=== PATIENT | female | born 1930 | race Caucasian/White ===

== ENCOUNTER 2018-05-25 06:24 | Inpatient (IN) | payer OTHER ==
[~2018-05-25] VITALS: Ht 160 cm; Wt 79.6 kg
[2018-05-25 06:29] VITALS: BP 179/54
[2018-05-25] MEDS ORDERED: AMLODIPINE BESY10 MG PO (06:48)
[2018-05-25] MEDS ORDERED: LISINOPRIL40 MG PO (06:49)
[2018-05-25] MEDS ORDERED: HYDROCHLOROTH12.5 M1 PO (06:50)
[2018-05-25] MEDS ORDERED: ASPIRIN EC81 M1 PO (06:51)
[2018-05-25 06:53] LABS: ABSOLUTE NEUTROPHILS 3.4 thou/uL (1.4-8.2); BASOPHILS 1.2 % (0.0-2.0); EOSINOPHILS 2.8 % (0.0-3.0); HEMATOCRIT 36.3 % (37.0-47.0); HEMOGLOBIN 11.8 gm/dL (12.0-15.0); LYMPHOCYTES 42.9 % (24.0-44.0); MCH 25.9 pg (26.0-34.0); MCHC 32.5 g/dL (28.0-37.0); MCV 79.7 fL (80.0-100.0); MONOCYTES 7.2 % (1.0-8.0); PLATELET COUNT 245 thou/uL (150-400); POLYS 45.9 % (36.0-66.0); RBC 4.56 mil/uL (4.20-5.00); RDW 14.7 % (10.5-14.5); WBC 7.4 thou/uL (4.0-11.0)
[2018-05-25] MEDS ORDERED: OMEPRAZOLE 20 M20 M1 PO (06:54)
[2018-05-25 07:09] LABS: ALBUMIN 3.9 g/dL (3.4-5.0); ANION GAP 15 mmol/L (7-16); BUN 13 mg/dL (7-18); CALCIUM 9.4 mg/dL (8.5-10.1); CHLORIDE 97 mmol/L (98-107); CO2 24 mmol/L (21-32); CREATININE 0.9 mg/dL (0.6-1.0); GLUCOSE 179 mg/dL (74-106); SGOT 50 U/L (15-37); SGPT 52 U/L (30-65); SODIUM 136 mmol/L (136-145); TOTAL BILIRUBIN 0.6 mg/dL (<0.1-1.0); TROPONIN-I <0.06 ng/mL (<0.06)
[2018-05-25 07:12] LABS: POTASSIUM 2.6 mmol/L (3.5-5.1)
--- NOTE | 2018-05-25 07:41 | EKG ---
[place] [address] [facility] [employer] [place] [address] ELECTROCARDIOGRAM REPORT Name: TREYAMOL Room #: REG OUSMANE [place]#: [id number] ������������������ Admission: 05/25/18 ������������������ Attend Phys: Discharge: ������������������ Date of : [birth year] Report #: [id number] ����������������������������������������������������������������� [id number] THIS REPORT FOR: //name// [facility] ED Test Date: 2018-05-25 Test Time: 06:37:20 Pat Name: AMOL YANG Department: Room: Gender: F Reamer Hand: Phong VILLARREAL : 1930 Requested By: Kiera Du Order Number: [id number] MD: Chuck Hernandez Measurements Intervals [place] Rate: 100 P: 0 MT: 188 QRS: 29 QRSD: 155 T: -37 QT: 360 QTc: 465 Interpretive Statements Sinus tachycardia Atrial premature complex Right bundle branch block No previous ECG available for comparison Electronically Signed On 05-25-2018 7:41:06 CDT by Chuck Hernandez [email or web address] ��������������������������������������������� <ELECTRONICALLY SIGNED> ���������������������������������������� By: Chuck Hernandez MD, [facility] ��������������������������������������������� 05/25/18 0741 0637 0637 Chuck Hernandez MD, [facility] /EPI
[2018-05-25 09:02] VITALS: BP 156/68
[2018-05-25] MEDS ORDERED: BISOPROLOL-HCT1 EACH PO (09:09)
[2018-05-25 09:33] VITALS: BP 155/64
[2018-05-25 09:50] LABS: TSH 5.623 uIU/mL (0.358-3.740)
[2018-05-25 10:28] VITALS: BP 183/69
--- NOTE | 2018-05-25 10:34 | 2DMMODE ---
[facility] [address] [place] [address] 2 D/M-MODE ECHOCARDIOGRAM Name: AMOL YANG MARYANN Room #: 207-P ADM IN M.R.#: [id number] ������������� Admission: 05/25/18 ������������� Attend Phys: Steve Lott, Discharge: ��� ������������� ��� Date of : [birth year] Date of Service: 05/25/18 1034 �� Report #: [id number] �������� ��������������������������������������������[id number] THIS REPORT FOR: //name// APPROVED REPORT Study performed: 05/25/2018 09:44:35 EXAM: Comprehensive 2D, Doppler, and color-flow Echocardiogram Patient Location: Echo lab Room #: 207 Status: routine BSA: 1.83 HR: 97 bpm BP: 156/68 mmHg Rhythm: NSR Other Information Study Quality: Good Indications Systolic murmur, palpitations, HTN. 2D Dimensions RVDd: 32.33 mm IVSd: 10.88 (7-11mm) LVOT Diam: 20.78 (18-24mm) LVDd: 43.04 mm PWd: 9.83 (7-11mm) Ascending Ao: 28.81 (22-36mm) LVDs: 26.28 (25-40mm) Aortic Root: 30.39 mm Volumes Left Atrial Volume (Systole) Single Plane 4CH: 63.09 mL Single Plane 2CH: 73.43 mL LA ESV Index: 39.00 mL/m2 Aortic Valve AoV Peak Bret.: 2.95 m/s AO Peak Gr.: 34.85 mmHg LVOT Max P.32 mmHg AO Mean Gr.: 17.81 mmHg AO V2 Mean: 2.00 m/s LVOT Max V: 1.44 m/s AO V2 VTI: 52.53 cm JOSE RAFAEL Vmax: 1.66 cm2 Mitral Valve E/A Ratio: 0.7 [facility] [place] [place] [address] 2 D/M-MODE ECHOCARDIOGRAM Name: AMOL YANG MARYANN Room #: 207-P ADM IN M.R.#: [id number] ������������� Admission: 05/25/18 ������������� Attend Phys: Steve Lott, Discharge: ��� ������������� ��� Date of : [birth year] Date of Service: 05/25/18 1034 �� Report #: [id number] �������� ��������������������������������������������[id number] MV Decel. Time: 186.60 ms MV E Max Bret.: 0.69 m/s MV A Bret.: 0.99 m/s MV PHT: 54.11 ms IVRT: 65.74 ms Pulmonary Valve PV Peak Bret.: 1.49 m/s PV Peak Gr.: 8.82 mmHg Pulmonary Vein P Vein S: 0.54 m/s P Vein D: 0.46 m/s P Vein S/D Ratio: 1.17 Tricuspid Valve TR Peak Bret.: 3.06 m/s RAP Estimate: 5.00 mmHg TR Peak Gr.: 37.41 mmHg PA Pressure: 42.00 mmHg Left Ventricle The left ventricle is normal size. There is normal LV segmental wall motion. Mild basal septal hypertrophy is present. Left ventricular systolic function is normal. LVEF is 65%. Mild diastolic dysfunction is present (impaired relaxation pattern). Right Ventricle The right ventricle is normal size. The right ventricular systolic function is normal. Atria Left atrium is mild to moderately dilated. The right atrium size is normal. Aortic Valve Aortic valve is moderately calcified. Mild aortic regurgitation. There is mild valvular aortic stenosis. Calculated aortic valve area is 1.7 cm2 with maximum pressure gradient of 35 mmHg and mean pressure gradient of 18 mmHg. Mitral Valve Mitral valve leaflets are mildly thickened. Mild mitral regurgitation. No evidence of mitral valve stenosis. Tricuspid Valve The tricuspid valve is normal in structure. Mild to moderate tricuspid regurgitation. Estimated PAP is 40-45mmHg. [facility] [address] [place] [address] 2 D/M-MODE ECHOCARDIOGRAM Name: AMOL YANG MARYANN Room #: 207-P ADM IN M.R.#: [id number] ������������� Admission: 05/25/18 ������������� Attend Phys: Steve Lott, Discharge: ��� ������������� ��� Date of : [birth year] Date of Service: 05/25/18 1034 �� Report #: [id number] �������� ��������������������������������������������[id number] Pulmonic Valve The pulmonary valve is normal in structure. Trace pulmonic regurgitation. Great Vessels The aortic root is normal in size. The ascending aorta is normal in size. IVC is normal in size and collapses >50% with inspiration. Pericardium There is no pericardial effusion. <Conclusion> The left ventricle is normal size. LVEF is 65%. Left atrium is mild to moderately dilated. Aortic valve is moderately calcified. Mild aortic regurgitation. There is mild valvular aortic stenosis. Calculated aortic valve area is 1.7 cm2 with maximum pressure gradient of 35 mmHg and mean pressure gradient of 18 mmHg. Mitral valve leaflets are mildly thickened. Mild mitral regurgitation. The tricuspid valve is normal in structure. Mild to moderate tricuspid regurgitation. Estimated PAP is 40-45mmHg. The pulmonary valve is normal in structure. Trace pulmonic regurgitation. There is no pericardial effusion. ��������������������������������������������� <ELECTRONICALLY SIGNED> ���������������������������������������� By: Wes Marquis MD ��������������������������������������������� 05/25/18 1034 1034 1034 Wes Marquis MD /INF
[2018-05-25 14:41] VITALS: BP 166/66
--- NOTE | 2018-05-25 16:50 | NUR ---
PT TO THE UNIT FROM THE ER, - PRESENTED TO ER WITH CO'S OF OF INCREASED HEART RATE- STATED SHE HAD NOT BEEN FEELING WELL FOR THE LAST COUPLE OF WEEK - DECREASED ENERGY, THIS HAS OCCURRED AFTER HER BEST FRIEND A COUPLE OF WEEKS AGO. PT ORIENTED TO ROOM AND BED SPACE - K+ SUPPLEMENT GIVEN ORDERED. MEDS PER MAR - UP WITH STBY ASSIST AND USE OF CANE TO BATHROOM - HEART RATE DOES BECOME TACHY WITH EXERTION LOW 100'S. PT WITH ORDERES FOR HYDRALAZINE PRN WITH ELEVATED BP. ASSESSMENT CHARTED - NANNETTE DIET AND FLUIDS - NO CO'S AT PAIN OR NAUSEA. APPEARS TO BE COMFORTABLE AT THE PRESENT TIME.
[2018-05-25 19:52] VITALS: BP 149/65
[2018-05-26 00:20] VITALS: BP 152/80
[2018-05-26 01:06] LABS: GLYCOHEMOGLOBIN (HGB A1C) 5.5 % (4.8-5.6)
--- NOTE | 2018-05-26 03:43 | NUR ---
ASSUMED PT CARE AT 1900. VSS. PT A&0X4. MILD EDEMA NOTED IN HER BILATERAL LEGS. PT STILL GETS TACHYCARDIC WITH ACTIVITY; SHE GOES UP TO THE 120s. SHE MENTIONED A KNOT IN HER RIGHT HAND, SHE THINKS IT IS HER ARTHERITIS FLARING UP. OTHERWISE SHE IS STABLE NO COMPLAINTS OF PAIN OR RESPIRATORY DISTRESS. PT SLEPT WELL ALL NIGHT, WILL CONTINUE TO MONITOR PER POC.
[2018-05-26 04:14] LABS: CREATININE 0.9 mg/dL (0.6-1.0); MAGNESIUM 1.9 mg/dL (1.8-2.4)
[2018-05-26 04:29] LABS: ABSOLUTE NEUTROPHILS 2.8 thou/uL (1.4-8.2); BASOPHILS 0.6 % (0.0-2.0); EOSINOPHILS 3.4 % (0.0-3.0); HEMATOCRIT 32.9 % (37.0-47.0); HEMOGLOBIN 10.8 gm/dL (12.0-15.0); LYMPHOCYTES 40.7 % (24.0-44.0); MCH 26.2 pg (26.0-34.0); MCHC 32.8 g/dL (28.0-37.0); MONOCYTES 9.1 % (1.0-8.0); PLATELET COUNT 197 thou/uL (150-400); POLYS 46.2 % (36.0-66.0); RBC 4.12 mil/uL (4.20-5.00); RDW 14.9 % (10.5-14.5); WBC 6.1 thou/uL (4.0-11.0)
[2018-05-26 04:42] VITALS: BP 154/77
[2018-05-26 07:24] VITALS: BP 165/75
--- NOTE | 2018-05-26 10:20 | NUR ---
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 Her son Bong at bedside. She uses a cane for ambulation. All needs on one level with ramp to enter home from garage. She reports independent with bathing. Patient/son interested in Home Health at ar. PCP Dr Little. Offered options for HH they are interested in [facility]. Request [facility] review. Casemgt to give son resources for pvt dty. Plan initally to sons home upon dc then home with HH services. Patient signed outside DNR form.
[2018-05-26 12:01] VITALS: BP 139/56
[2018-05-26 16:15] VITALS: BP 151/71
--- NOTE | 2018-05-26 16:54 | NUR ---
Notified Rn of signed DNR form and placed on chart. Original and copies for son in room. [facility] accepting of patient on dc. verified sons adress were she will she originally stay and her home address.
--- NOTE | 2018-05-26 17:46 | NUR ---
AAOX4. PLEASANT AND COOPERATIVE. UP WITH MINIMAL ASSIST WITH CANE. GOOD APPETITE. FAMILY HERE MOST OF SHIFT. RIGHT AC SALINE LOCK.
[2018-05-26 19:42] VITALS: BP 135/54
[2018-05-27 05:00] VITALS: BP 128/65
[2018-05-27 07:45] VITALS: BP 142/75
[2018-05-27] MEDS ORDERED: VERAPAMIL ER180 M1 PO (08:54)
[2018-05-27 10:30] VITALS: BP 142/75
[2018-05-27 10:55] VITALS: BP 130/59
[2018-05-27] MEDS ORDERED: VERAPAMIL HCL180 M4 PO (13:28)
[2018-05-27 13:32] VITALS: BP 142/75
--- NOTE | 2018-05-27 14:25 | NUR ---
[facility] notified of dc today and hh orders. Son's address provided for start of service. No other cm interventions indicated. Dc home later today.
--- NOTE | 2018-05-27 15:46 | NUR ---
ASSESSMENT CHARTED - MEDS PER MAY - NO CO'S OF PAIN OR NAUSEA. PT WITH EPISODE OF DIARREHA THIS AM- GIVEN LOPREIMIDE WITH GOOD RELIEF. UP WITH STANDBY ASSIST IN ROOM. NANNETTE DIET AND FLUIDS. PATIENT HOME THIS AFTERNOON. INSTRUCTION RE HOME MEDS/ CARE AND FOLLOW UP GIVEN TO PATIENT AND DAUGHTER IN LAW. STATED UNDERSTANDING OF INSTRUCTION GIVEN. LEFT UNIT VIA WHEEL CHAIR - HOME VIA PVT VEHICLE ACCOMPANIED BY DAUGHTER IN LAW - NO CO'S AT TIME OF D/C. IV AND MONITOR REMOVED.
== END 2018-05-27 14:55 | disposition home health service (06) | DRG 641 ==
LOC: ER 06:24 → 2N 07:59 → EROBS 07:59 → 2N 09:39 → ENTRNSPT 05-27 14:45 → EDTRNSPTSTS 05-27 14:53 → 2N 05-27 14:55
PROVIDERS: Nurse Practitioner; Student in an Organized Health Care Education/Training Program; ADMIT Internal Medicine
DX: E87.6 Hypokalemia (principal); I10 Essential (primary) hypertension; M81.0 Age-related osteoporosis without current pathological fracture; K21.9 Gastro-esophageal reflux disease without esophagitis; R00.0 Tachycardia, unspecified; Z60.2 Problems related to living alone; I35.0 Nonrheumatic aortic (valve) stenosis; E53.8 Deficiency of other specified B group vitamins; M62.84 Sarcopenia; Z79.82 Long term (current) use of aspirin; Z79.899 Other long term (current) drug therapy; R00.2 Palpitations; I49.1 Atrial premature depolarization
CPT/HCPCS: 10081

== ENCOUNTER 2018-12-27 13:05 | Inpatient (IN) | payer OTHER ==
[~2018-12-27] VITALS: Ht 152.4 cm; Wt 81.2 kg
[~2018-12-27 13:05] MED LIST: AMLODIPINE BESY10 MG PO; ASPIRIN EC81 M1 PO; BISOPROLOL-HCT1 EACH PO; HYDROCHLOROTH12.5 M1 PO; LISINOPRIL40 MG PO; OMEPRAZOLE 20 M20 M1 PO; VERAPAMIL ER180 M1 PO; VERAPAMIL HCL180 M4 PO
[2018-12-27 13:14] VITALS: BP 155/86
[2018-12-27] MEDS ORDERED: OXYBUTYNIN 5 MG5 M2 PO (13:35)
[2018-12-27] MEDS ORDERED: KLOR-CON 1010 MEQ PO (13:36)
[2018-12-27 13:41] LABS: ABSOLUTE NEUTROPHILS 5.4 thou/uL (1.4-8.2); BASOPHILS 0.7 % (0.0-2.0); HEMATOCRIT 35.7 % (37.0-47.0); HEMOGLOBIN 11.5 gm/dL (12.0-15.0); LYMPHOCYTES 23.1 % (24.0-44.0); MCH 24.7 pg (26.0-34.0); MCHC 32.3 g/dL (28.0-37.0); MCV 76.3 fL (80.0-100.0); MONOCYTES 7.7 % (1.0-8.0); PLATELET COUNT 236 thou/uL (150-400); POLYS 67.5 % (36.0-66.0); RBC 4.68 mil/uL (4.20-5.00); RDW 14.8 % (10.5-14.5)
[2018-12-27 13:52] LABS: ANION GAP 14 mmol/L (7-16); BUN 11 mg/dL (7-18); CALCIUM 9.1 mg/dL (8.5-10.1); CHLORIDE 99 mmol/L (98-107); CO2 22 mmol/L (21-32); CREATININE 0.9 mg/dL (0.6-1.0); GLUCOSE 99 mg/dL (74-106); POTASSIUM 3.4 mmol/L (3.5-5.1); SODIUM 135 mmol/L (136-145)
[2018-12-27 14:01] LABS: ALBUMIN 3.9 g/dL (3.4-5.0); SGOT 40 U/L (15-37); SGPT 32 U/L (30-65); TOTAL BILIRUBIN 0.4 mg/dL (<0.1-1.0); TOTAL PROTEIN 7.5 g/dL (6.4-8.2); TROPONIN-I <0.06 ng/mL (<0.06)
[2018-12-27 14:54] LABS: URINE BILIRUBIN NEGATIVE (Negative); URINE BLOOD NEGATIVE (Negative); URINE CLARITY CLEAR; URINE COLOR YELLOW; URINE GLUCOSE-RANDOM* NEGATIVE (Negative); URINE KETONES NEGATIVE (Negative); URINE LEUKOCYTES-REFLEX NEGATIVE (Negative); URINE NITRITE-REFLEX NEGATIVE (Negative); URINE PROTEIN (DIPSTICK) NEGATIVE (Negative); URINE SPECIFIC GRAVITY <= 1.005 (1.005-1.035); URINE UROBILINOGEN 0.2 E.U./dl (0.2-1.0)
[2018-12-27 15:01] VITALS: BP 139/91
[2018-12-27 16:05] VITALS: BP 150/76
--- NOTE | 2018-12-27 16:42 | NUR ---
PT ARRIVED TO UNIT AT APPROX 1615. PT ALERT AND ORIENTED, DENIES CHEST PAIN, O2 SATS WNL ON ROOM AIR. VSS, UP SBA TOLERATING WELL. FAMILY AT BEDSIDE. ADMISSION COMPLETE. CONSENTS SIGNED. TELE PUT ON, ADMISSION STRIP PRINTED. REVIEWED TELEMETRY SHEET WITH PT, COMMUNICATES UNDERSTANDING. DENIES NEEDS AT THIS TIME. WILL FOLLOW FURTHER ORDERS. CONTINUING TO MONITOR.
[2018-12-27 17:00] VITALS: BP 147/83
[2018-12-27 20:24] VITALS: BP 157/92
[2018-12-28 00:30] VITALS: BP 142/86
--- NOTE | 2018-12-28 02:29 | NUR ---
ASSESSMENTS CHARTED, MEDS GIVEN CHARTED. PATIENT ARRIVED FROM ED DURING DAY SHIFT WITH PRIOR COMPLAINT OF DIZZINESS AND TACHYDARDIA. PATIENT IS STILL TACHYCARDIC. PRN MEDS GIVEN ORDERED. UP AT DEMARIO IN ROOM. DENIES PAIN. PLAN IS FOR PATIENT TO GO HOME IN THE MORNING.
[2018-12-28 04:54] VITALS: BP 143/90
--- NOTE | 2018-12-28 07:58 | EKG ---
[place] [address] [facility] [address] ELECTROCARDIOGRAM REPORT Name: TREYAMOL JESUS MARYANN Room #: 207-P ADM IN M.R.#: [id number] Admission: 12/27/18 Attend Phys: Yin Gage Discharge: Date of : [birth year] Report #: [id number] THIS REPORT FOR: //name// [facility] ED Test Date: 2018-12-27 Test Time: 13:13:57 Pat Name: AMOL YANG Department: Room: 207 Gender: F Planning Lead: CAROLINE : 1930 Requested By: Lary Ortiz Order Number: [id number] MD: Chuck Hernandez Measurements Intervals [place] Rate: 128 P: 194 NE: 187 QRS: 43 QRSD: 134 T: -5 QT: 338 QTc: 494 Interpretive Statements Supraventricular tachycardia Right bundle branch block Nonspecific ST and T wave abnormality Compared to ECG 05/25/2018 06:37:20 SVT has replaced sinus tachycardia Electronically Signed On 12-28-2018 7:58:21 CDT by Chuck Hernandez [email or web address] <ELECTRONICALLY SIGNED> By: Chuck Hernandez MD, [facility] 12/28/18 0758 1313 1313 Chuck Hernandez MD, [facility] /EPI
[2018-12-28 08:01] VITALS: BP 131/94
--- NOTE | 2018-12-28 08:07 | EKG ---
[place] [address] [facility] [place] [address] ELECTROCARDIOGRAM REPORT Name: TREYAMOL JESUS Room #: 207-P ADM IN M.R.#: [id number] Admission: 12/27/18 Attend Phys: Yin Gage Discharge: Date of : [birth year] Report #: [id number] THIS REPORT FOR: //name// [facility] Test Date: 2018-12-28 Test Time: 07:00:03 Pat Name: AMOL YANG Department: Room: 207 P Gender: F Conceptor: Lito MATTHEWS : 1930 Requested By: Sherri Benson Order Number: [id number] MD: Chuck Hernandez Measurements Intervals [place] Rate: 129 P: [place]: QRS: 47 QRSD: 148 T: -9 QT: 375 QTc: 550 Interpretive Statements Supraventricular rhythm, possibly atrial flutter Right bundle branch block Compared to ECG 05/25/2018 06:37:20 No significant change was found Electronically Signed On 12-28-2018 8:07:12 CDT by Chuck Hernandez [email or web address] <ELECTRONICALLY SIGNED> By: Chuck Hernandez MD, [facility] [phone] Chuck Hernandez MD, [facility] /EPI
--- NOTE | 2018-12-28 09:44 | 2DMMODE ---
[facility] [address] [place] [address] 2 D/M-MODE ECHOCARDIOGRAM Name: TREYAMOL MARYANN Room #: 207-P ADM IN M.R.#: [id number] Admission: 12/27/18 Attend Phys: Yin Rojas Discharge: Date of : [birth year] Report #: [id number] THIS REPORT FOR: //name// APPROVED REPORT Study performed: 12/28/2018 08:38:39 EXAM: Comprehensive 2D, Doppler, and color-flow Echocardiogram Patient Location: Echo lab Room #: [facility] Status: routine BSA: 1.74 HR: 130 bpm BP: 131/94 mmHg Rhythm: Tachycardia Other Information Study Quality: Adequate Indications SVT, Palpitations. 2D Dimensions RVDd: 36.67 mm IVSd: 13.00 (7-11mm) LVOT Diam: 19.87 (18-24mm) LVDd: 35.01 mm PWd: 11.22 (7-11mm) Ascending Ao: 29.24 (22-36mm) LVDs: 21.45 (25-40mm) Aortic Root: 31.70 mm Volumes Left Atrial Volume (Systole) Single Plane 4CH: 72.79 mL Single Plane 2CH: 64.45 mL LA ESV Index: 41.00 mL/m2 Aortic Valve AoV Peak Bert.: 2.25 m/s AO Peak Gr.: 20.18 mmHg LVOT Max P.34 mmHg AO Mean Gr.: 11.09 mmHg AO V2 Mean: 1.58 m/s LVOT Max V: 0.76 m/s AO V2 VTI: 29.80 cm JOSE RAFAEL Vmax: 1.05 cm2 Mitral Valve MV Decel. Time: 114.93 ms [facility] [address] [place] [address] 2 D/M-MODE ECHOCARDIOGRAM Name: AMOL YANG MARYANN Room #: 207-P [facility] IN .R.#: [id number] Admission: 12/27/18 Attend Phys: Yin Rojas Discharge: Date of : [birth year] Report #: [id number] E Max Bret.: 1.05 m/s IVRT: 80.74 ms Pulmonary Valve PV Peak Bret.: 0.85 m/s PV Peak Gr.: 2.91 mmHg Pulmonary Vein P Vein S: 0.53 m/s P Vein D: 0.30 m/s P Vein S/D Ratio: 1.77 Tricuspid Valve TR Peak Bret.: 3.03 m/s RAP Estimate: 5.00 mmHg TR Peak Gr.: 37.00 mmHg PA Pressure: 42.00 mmHg Left Ventricle The left ventricle is normal size. There is normal LV segmental wall motion. Moderate basal septal hypertrophy is present. Left ventricular systolic function is normal. LVEF is 60%. This study is not technically sufficient to allow evaluation of the LV diastolic function. Right Ventricle The right ventricle is normal size. The right ventricular systolic function is low normal. Atria Left atrium is moderately dilated. The right atrium size is normal. Aortic Valve Aortic valve is moderately calcified. Mild aortic regurgitation. There is mild to moderate valvular aortic stenosis. Calculated aortic valve area is 1.1 cm2 with maximum pressure gradient of 21 mmHg and mean pressure gradient of 11 mmHg. Mitral Valve Mitral valve leaflets are mildly thickened. Trace to mild mitral regurgitation. No evidence of mitral valve stenosis. Tricuspid Valve The tricuspid valve is normal in structure. Moderate tricuspid regurgitation. Estimated PAP is 4-45mmHg. Pulmonic Valve [facility] [address] [place] [address] 2 D/M-MODE ECHOCARDIOGRAM Name: AMOL YANG MARYANN Room #: 207-P ADM IN M.R.#: [id number] Admission: 12/27/18 Attend Phys: Yin Rojas Discharge: Date of : [birth year] Report #: [id number] The pulmonary valve is normal in structure. There is no pulmonic valvular regurgitation. Great Vessels The aortic root is normal in size. The ascending aorta is normal in size. IVC is normal in size and collapses >50% with inspiration. Pericardium There is no pericardial effusion. <Conclusion> The left ventricle is normal size. LVEF is 60%. Left atrium is moderately dilated. Aortic valve is moderately calcified. Mild aortic regurgitation. There is mild to moderate valvular aortic stenosis. Calculated aortic valve area is 1.1 cm2 with maximum pressure gradient of 21 mmHg and mean pressure gradient of 11 mmHg. Mitral valve leaflets are mildly thickened. Trace to mild mitral regurgitation. The tricuspid valve is normal in structure. Moderate tricuspid regurgitation. Estimated PAP is 4-45mmHg. There is no pericardial effusion. <ELECTRONICALLY SIGNED> By: Wes Marquis MD 12/28/1844 3 3 Wes Marquis MD /INF
[2018-12-28 11:33] VITALS: BP 146/91
[2018-12-28 16:44] VITALS: BP 100/54
--- NOTE | 2018-12-28 17:35 | NUR ---
attempted to see patient she has visitors and eating dinner requested return in am
--- NOTE | 2018-12-28 19:45 | NUR ---
ASSUMED CARE AT SHIFT CHANGE, ALERT AND ORIENTED X4. 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 PATIENT REFUSED TO TAKE SOME HER MEDS THIS MORNING, AND DR FARLEY NOTIFIED. DR FARLEY SEEN PATIENT AND EXPLAINED TO HER WHY SOME HER MEDS DOSAGE CHANGED. AMIO DRIP DISCONTINUED, EKG DONE, AND CONFIRMED SR. PATIENT ALSO DISCONTINUED HER PIV. PROGRSSING TOWARDS GOALS AND WILL CONTINUE WITH POC.
[2018-12-28 20:46] VITALS: BP 153/71
[2018-12-29] VITALS (8 sets, daily range): BP systolic 81–147; BP diastolic 40–82
--- NOTE | 2018-12-29 02:43 | NUR ---
REASSESSMENTS CHARTED, MEDS CHARTED GIVEN. PATIENT HAD DC'D HER IV PRIOR TO SHIFT CHANGE. PLACED NEW IV ACCESS IN LEFT FOREARM. CARDIAC RHYTHM WENT FROM AFIB IN THE 60'S BACK TO SINUS TACH. CALLED CARDIOLOGY AND SPOKE WITH DR. MATOS. RECEIVED ORDER. CODY ESTES DENIES PAIN. UP AT DEMARIO IN ROOM UNTIL IV WAS RESTARTED, NOW SHE WILL CALL FOR STANDBY HELP. VSS.
--- NOTE | 2018-12-29 08:23 | EKG ---
[place] [address] [facility] [place] [address] ELECTROCARDIOGRAM REPORT Name: TREYAMOL JESUS Room #: 207-P ADM IN M.R.#: [id number] Admission: 12/27/18 Attend Phys: Yin Gage Discharge: Date of : [birth year] Report #: [id number] THIS REPORT FOR: //name// [facility] Test Date: 2018-12-28 Test Time: 16:22:41 Pat Name: AMOL YANG Department: Room: 207 P Gender: F Marine Animal Trainer: Shira ASTUDILLO : 1930 Requested By: Wes Marquis Order Number: [id number] MD: Chuck Hernandez Measurements Intervals [place] Rate: 61 P: 98 [place]: 159 QRS: 42 QRSD: 153 T: 23 QT: 494 QTc: 498 Interpretive Statements Atrial flutter with a controlled ventricular response Right bundle branch block Compared to ECG 12/28/2018 07:00:03 Heart rate has slowed Electronically Signed On 12-29-2018 8:23:26 CDT by Chuck Hernandez [email or web address] <ELECTRONICALLY SIGNED> By: Chuck Hernandez MD, [facility] 12/29/18 0823 1622 162 Chuck Hernandez MD, [facility] /EPI
--- NOTE | 2018-12-29 13:55 | NUR ---
Met with patient who reports she lives alone in home all needs on one level. She uses a cane for ambulation. She reports she does not do much cleaning anymore, she eats some TV dinners. She has 3 sons in area and all supportive. Her dtr in law also brings her some food at times. She no longer drives and children assist with driving. PCP Dr Little. She is agreeable to if ordered and prefers [facility].
--- NOTE | 2018-12-29 14:21 | NUR ---
PATIENT PROGRESSING TOWARDS PLAN OF CARE OF NO CHEST PAIN, DECREASED DIZZINESS. SHE HAS DENIED PAIN TODAY. SHE WORKED WITH PT AND OT, AND PER REPORT, PATIENT WAS DIZZY DURING POSITION CHANGED. VITAL SIGNS WERE RELATIVELY THE SAME WITH SITTING VS STANDING PER PHYSICAL THERAPY REPORT. NURSE TO CONTINUE TO MONITOR PATIENT STATUS.
--- NOTE | 2018-12-29 19:03 | NUR ---
PATIENT MORE AWAKE AND ALERT POST IV FLUID BOLUS. SHE EXPRESSED SHE FELT MUCH BETTER AFTER THE IV FLUID BOLUS.
[2018-12-30 05:06] VITALS: BP 131/54
[2018-12-30 07:12] LABS: ABSOLUTE RETIC COUNT 0.0737 10^6/uL
[2018-12-30 07:20] LABS: % SATURATION 9 % (20-39); IRON 32 ug/dL (50-170); TIBC 337 ug/dL (250-450)
--- NOTE | 2018-12-30 08:30 | NUR ---
ASSUME CARE 1900. PT/VITALS STABLE. bp COULD RUN LOW AT TIMES. DENEIS ANY PAIN. STABLE ON FEET WITH VALERIO. PROGRESSING WELL WITH POC. ASSESSMENT CHARTED. PLAN IS TO CONTINUE TO MONITOR ORTHOSTATIC BPS. ADEQAUTE REST NOTED THROUGH THE AM WITH SR/1D/BBB NOTED. WILL CONTINUE TO MONITOR AND FOLLOW WITH POC
[2018-12-30 09:10] VITALS: BP 146/59
--- NOTE | 2018-12-30 10:24 | NUR ---
FAXED REFERRAL TO [facility] SPOKE WITH FEDERICO IN ADM SHE RECEIVED REFERRAL AND WILL REVIEW. DP TO FOLLOW.
[2018-12-30 11:45] VITALS: BP 117/50
[2018-12-30] MEDS ORDERED: VERAPAMIL HCL180 M4 PO (11:48)
[2018-12-30] MEDS ORDERED: XARELTO20 MG PO (11:48)
[2018-12-30] MEDS ORDERED: METOPROLOL SUCC50 MG PO (11:48)
[2018-12-30 12:32] VITALS: BP 117/50
[2018-12-30 13:25] VITALS: BP 117/50
--- NOTE | 2018-12-30 13:25 | NUR ---
PT IS GOING HOME WITH FAXED REFERRAL TO [facility] SPOKE WITH MICHAEL IN ADM SHE RECEIVED REFERRAL AND CAN ACCEPT. FAXED DC ORDERS/SUMMARY RECEIVED CONFIRMATION SPOKE WITH MICHAEL SHE RECEIVED DC ORDERS AND WILL NOTIFY PT TIME OF VISITS.
[2018-12-30 13:26] VITALS: BP 117/50
== END 2018-12-30 14:30 | disposition home health service (06) | DRG 309 ==
LOC: ER 13:05 → 2N 14:55 → EROBS 14:55 → 2N 16:05
PROVIDERS: Nurse Practitioner Family; ADMIT Hospitalist
DX: I47.1 Supraventricular tachycardia (principal); J98.11 Atelectasis; I10 Essential (primary) hypertension; K21.9 Gastro-esophageal reflux disease without esophagitis; E78.5 Hyperlipidemia, unspecified; Z60.8 Other problems related to social environment; I35.0 Nonrheumatic aortic (valve) stenosis; I48.92 Unspecified atrial flutter; N32.81 Overactive bladder; E87.6 Hypokalemia; G47.00 Insomnia, unspecified; I48.91 Unspecified atrial fibrillation; Z79.82 Long term (current) use of aspirin; Z79.899 Other long term (current) drug therapy; Z28.21 Immunization not carried out because of patient refusal
CPT/HCPCS: 10081

== ENCOUNTER 2018-12-30 16:50 | Inpatient (IN) | payer OTHER ==
[~2018-12-30] VITALS: Ht 172.7 cm; Wt 74.4 kg
[~2018-12-30 16:50] MED LIST changes: +KLOR-CON 1010 MEQ PO; +METOPROLOL SUCC50 MG PO; +OXYBUTYNIN 5 MG5 M2 PO; +XARELTO20 MG PO
[2018-12-30 16:51] VITALS: BP 83/32
[2018-12-30 17:47] LABS: ABSOLUTE NEUTROPHILS 9.9 thou/uL (1.4-8.2); BASOPHILS 0.6 % (0.0-2.0); EOSINOPHILS 0.6 % (0.0-3.0); HEMATOCRIT 30.6 % (37.0-47.0); HEMOGLOBIN 9.5 gm/dL (12.0-15.0); LYMPHOCYTES 20.3 % (24.0-44.0); MCH 24.2 pg (26.0-34.0); MCHC 31.2 g/dL (28.0-37.0); MCV 77.6 fL (80.0-100.0); MONOCYTES 6.5 % (1.0-8.0); PLATELET COUNT 305 thou/uL (150-400); RBC 3.94 mil/uL (4.20-5.00); RDW 14.8 % (10.5-14.5); WBC 13.7 thou/uL (4.0-11.0)
[2018-12-30 17:54] LABS: ANION GAP 16 mmol/L (7-16); BUN 29 mg/dL (7-18); CALCIUM 8.9 mg/dL (8.5-10.1); CHLORIDE 95 mmol/L (98-107); CO2 20 mmol/L (21-32); CREATININE 1.8 mg/dL (0.6-1.0); GLUCOSE 131 mg/dL (74-106); POTASSIUM 3.7 mmol/L (3.5-5.1); SODIUM 131 mmol/L (136-145)
[2018-12-30 18:03] LABS: TROPONIN-I <0.06 ng/mL (<0.06)
[2018-12-30 20:05] LABS: % SATURATION 6 % (20-39); IRON 22 ug/dL (50-170); TIBC 358 ug/dL (250-450)
[2018-12-30 20:11] LABS: HEMATOCRIT 29.8 % (37.0-47.0); HEMOGLOBIN 9.4 gm/dL (12.0-15.0)
[2018-12-30 22:17] VITALS: BP 122/52
[2018-12-30 22:50] VITALS: BP 136/56
[2018-12-30 23:36] VITALS: BP 140/56
[2018-12-31 03:13] VITALS: BP 143/72
--- NOTE | 2018-12-31 05:41 | NUR ---
PATIENT IS ALERT AND ORIENTED. PATIENT IS SBA FOR SYNCOPE. PATIENT USES CANE. PATIENT IS ROOM AIR. PATIENT HAS BEEN NPO SENSE MIDNIGHT. PATIENT IS PENDING MRI IN AM. PATIENTS NIH IS ONE FOR POOR VISION. PATIENTS VITALS HAVE BEEN STABLE. PATIENT IS ACHS ACCUCHECKS. PATIENT DENIES HX OF DM. PATIENT IS NSR WITH 1ST DEGREE AND BBB. PATINET IS DENEIS PAIN. PATIENT IS RESTING COMFORTABLY IN BED. WCM. PATIENT IS PROGRESSING TO GOALS.
[2018-12-31 05:42] LABS: BASOPHILS 0.4 % (0.0-2.0); EOSINOPHILS 0.1 % (0.0-3.0); HEMATOCRIT 27.4 % (37.0-47.0); HEMOGLOBIN 8.8 gm/dL (12.0-15.0); LYMPHOCYTES 18.9 % (24.0-44.0); MCH 24.7 pg (26.0-34.0); MCV 77.2 fL (80.0-100.0); MONOCYTES 6.1 % (1.0-8.0); POLYS 74.5 % (36.0-66.0); RBC 3.56 mil/uL (4.20-5.00); RDW 14.7 % (10.5-14.5); WBC 8.1 thou/uL (4.0-11.0)
[2018-12-31 05:50] LABS: CHLORIDE 99 mmol/L (98-107); CREATININE 1.3 mg/dL (0.6-1.0); POTASSIUM 4.3 mmol/L (3.5-5.1); SODIUM 134 mmol/L (136-145)
[2018-12-31 05:58] LABS: PLATELET COUNT 211 thou/uL (150-400)
[2018-12-31 06:15] LABS: ANION GAP 13 mmol/L (7-16); BUN 31 mg/dL (7-18); CALCIUM 8.5 mg/dL (8.5-10.1); CHOLESTEROL 141 mg/dL (<200); CO2 22 mmol/L (21-32); GLUCOSE 106 mg/dL (74-106); HDL CHOLESTEROL 28 mg/dL (>40); LDL CHOLESTEROL 91 mg/dL (<100); TRIGLYCERIDE 112 mg/dL (<150); VLDL 22 mg/dL (<40)
[2018-12-31 06:18] LABS: SERUM ASSESSMENT Clear
[2018-12-31 07:04] VITALS: BP 154/63
--- NOTE | 2018-12-31 08:21 | EKG ---
[address] [place] [address] ELECTROCARDIOGRAM REPORT Name: AMOL YANG Room #: 349-I ADM IN M.R.#: [id number] Admission: 12/30/18 Attend Phys: Samara Caicedo MD Discharge: Date of : [birth year]19/[birth year] Report #: [id number] THIS REPORT FOR: //name// [facility] ED Test Date: 2018-12-30 Test Time: 17:04:11 Pat Name: AMOL YANG Department: Room: 349 Gender: F Green Feed Attendant: INES : 1930 Requested By: Ranjeet Dong Order Number: [id number] MD: Chuck Hernandez Measurements Intervals [place] Rate: 60 P: 0 MS: 248 QRS: 40 QRSD: 160 T: 10 QT: 514 QTc: 514 Interpretive Statements Sinus rhythm with complete heart block Right bundle branch block Compared to ECG 12/28/2018 16:22:41 Atrial flutter no longer present Electronically Signed On 12-31-2018 8:21:38 CDT by Chuck Hernandez [email or web address] <ELECTRONICALLY SIGNED> By: Chuck Hernandez MD, [facility] 12/31/18 0821 170 03 Chuck Hernandez MD, [facility] /EPI
--- NOTE | 2018-12-31 10:11 | NUR ---
ASSESSMENT: CM REVIEWED CHART AND MET WITH PATIENT AND HER SON AT THE BEDSIDE. PT WAS ADMITTED DUE TO POSSIBLE TIA. PT REPORTS SHE WAS LIVING AT HOME ALONE IN A HOUSE WITH A RAMP TO ENTER. PT JUST LEFT THE HOSPITAL A FEW DAYS AGO AND WENT TO STAY WITH HER SON DAVE AND WAS SUPPOSED TO HAVE [facility] HH BUT THEY DID NOT MAKE IT OUT DUE TO PATIENT BEING BACK IN THE HOSPITAL. PT PLANS TO RETURN TO STAY WITH HER SON DAVE FOR A FEW DAYS AT DISCHARGE. CM NOTIFIED [facility] HH THAT PATIENT WAS HOSPITALIZED AND SHE WANTS TO USE THEM AGAIN AT DISCHARGE AND THEY HAVE THE SONS ADDRESS AND CONTACT NUMBER. PT REPORTS SHE USES A CANE FOR AMBULATION. PATIENT IS HOPEFUL TO RETURN HOME WITH [facility] AT DISCHARGE. CM SENT REFERRAL. SHOULD PATIENT DISCHARGE OVER THE WEEKENED WITH HOME HEALTH CONTACT [facility] AT [phone] AND FAX D/C ORDERS TO FAX:[phone].
[2018-12-31 11:39] VITALS: BP 171/62
[2018-12-31 15:07] VITALS: BP 149/51
[2018-12-31 19:04] VITALS: BP 148/57
--- NOTE | 2018-12-31 20:05 | NUR ---
pt is A&OX3, PT's vs and o2sat are stable, pt denies pain and synocope today.
[2018-12-31 20:19] LABS: HEMATOCRIT 29.3 % (37.0-47.0); HEMOGLOBIN 9.5 gm/dL (12.0-15.0)
[2018-12-31 23:41] VITALS: BP 154/55
[2019-01-01] VITALS (7 sets, daily range): BP systolic 151–180; BP diastolic 53–71
[2019-01-01 00:05] LABS: GLYCOHEMOGLOBIN (HGB A1C) 5.3 % (4.8-5.6)
--- NOTE | 2019-01-01 11:26 | HC ---
[facility] [place] [address] CONSULTATION Name: TREYAMOL Room #: 349-I ADM IN M.R.#: [id number] Admission: 12/30/18 Attend Phys: Samara Caicedo MD Discharge: Date of : 11/19/30 Report #: [id number] THIS REPORT FOR: //name// CC: Wes Little DATE OF SERVICE: 12/31/2018 REASON FOR GI CONSULTATION: Anemia. HISTORY OF PRESENT ILLNESS: The patient is an 88-year-old female who was admitted to the Emergency Room yesterday for generalized weakness, dizziness, nausea, shortness of breath. She had been recently treated in the hospital for atrial fibrillation and was discharged. She is on Xarelto. The patient has had a drop in her hemoglobin, which is 8.8 today, on 12/2013, she was 11.5. She denies any obvious bright red blood per rectum or melena. She denies any previous history of GI bleed. She believes she may have a history of anemia, but that was in the distant past. She does report some mild dysphagia at times. She denies any abdominal pain. Her weight has been stable. Her appetite has been fairly good. No previous history of upper endoscopy. She believes she had a colonoscopy 5 years ago in which polyps were removed. No family history of colon cancer. Xarelto has been held. Stool hemoccult testing has been ordered, this is pending receipt of stool at this time. She currently denies any chest pain or shortness of breath. PAST MEDICAL HISTORY: Atrial fibrillation, hypertension, possible history of gastroesophageal reflux disease. MEDICATIONS: At home, Xarelto, metoprolol, verapamil, lisinopril, aspirin 81 mg, oxybutynin, potassium chloride, at some point it appears omeprazole, had been discontinued. ALLERGIES: STATINS. REVIEW OF SYSTEMS: As per HPI. SOCIAL HISTORY: She denies any tobacco or alcohol use. FAMILY HISTORY: Negative for colon cancer. PHYSICAL EXAMINATION: VITAL SIGNS: Temperature is 98.7, pulse 84, blood pressure is 149/51, respiratory rate is 20. GENERAL: She is alert and oriented x 3, in no acute distress. [address] [address] CONSULTATION [facility] [id number] Admission: 12/30/18 Attend Phys: Samara Caicedo MD Discharge: Date of : 11/19/30 Report #: [id number] HEENT: Sclerae nonicteric. Oropharynx clear. She has decreased hearing bilaterally. NECK: Supple, without lymphadenopathy. CARDIOVASCULAR: Regular rate and rhythm with a systolic ejection murmur noted. CHEST: Clear to auscultation bilaterally. ABDOMEN: Soft. She is nontender, nondistended. Normoactive bowel sounds. EXTREMITIES: No cyanosis, clubbing or edema. LABORATORY DATA: Sodium 134, potassium 4.3, chloride 99, bicarbonate 22, BUN 31, creatinine 1.3, AST 40, total bilirubin 0.4, calcium 8.5, magnesium 2.0, alkaline phosphatase 117, ALT is 32, albumin 3.9. WBC is 8.1, hemoglobin is 8.8, MCV 77.2, platelet count is 211. ASSESSMENT AND PLAN: 1. Anemia. Agree with Hemoccult testing stools. 2. The patient has had a drop in her hemoglobin over the last several days, she has been on Xarelto. This has now been held. She also apparently has been on aspirin at home, increasing risk for possible peptic ulcer disease. She denies any obvious melena or bright red blood per rectum. We will continue to follow up hemoglobin closely. 3. Agree with Protonix, which has now been started. If Hemoccult positive, we would likely recommend at least proceeding with an upper endoscopy, may need to consider EGD and colonoscopy. Thank you for allowing me to participate in her care. <ELECTRONICALLY SIGNED> By: Lawrence Hernandez MD 01/01/19 1126 [id number] Lawrence Hernandez MD /nt
--- NOTE | 2019-01-01 19:40 | NUR ---
pt is A&OX3, pt gets up to bathroom with cane, RN has called dr to report pt's high BP, pt has new bp medication about 1800pm, RN will report to next shift to keep eye on pt.
--- NOTE | 2019-01-01 19:42 | NUR ---
pt tranfered from ICU, pt is confused and he still trys to put out his iv line and Lowe catheter, so pt is on 1:1 sitter for pt's safety, pt's vs and bs are stable, RN has called dr about pt's urine out only 100ml in 3hr, no new order at this time.
[2019-01-01 20:20] LABS: HEMATOCRIT 28.5 % (37.0-47.0); HEMOGLOBIN 9.1 gm/dL (12.0-15.0)
[2019-01-02] VITALS (20 sets, daily range): BP systolic 101–154; BP diastolic 47–85
[2019-01-02 05:38] LABS: ABSOLUTE NEUTROPHILS 3.3 thou/uL (1.4-8.2); BASOPHILS 0.8 % (0.0-2.0); EOSINOPHILS 2.1 % (0.0-3.0); HEMATOCRIT 31.8 % (37.0-47.0); HEMOGLOBIN 10.2 gm/dL (12.0-15.0); LYMPHOCYTES 33.9 % (24.0-44.0); MCH 24.7 pg (26.0-34.0); MCHC 32.2 g/dL (28.0-37.0); MCV 76.8 fL (80.0-100.0); MONOCYTES 10.6 % (1.0-8.0); PLATELET COUNT 217 thou/uL (150-400); POLYS 52.6 % (36.0-66.0); RBC 4.13 mil/uL (4.20-5.00); WBC 6.2 thou/uL (4.0-11.0)
[2019-01-02 06:07] LABS: ALBUMIN 3.3 g/dL (3.4-5.0); CALCIUM 8.8 mg/dL (8.5-10.1); CREATININE 0.7 mg/dL (0.6-1.0); MAGNESIUM 1.8 mg/dL (1.8-2.4); PHOSPHORUS 2.7 mg/dL (2.5-4.9); POTASSIUM 3.2 mmol/L (3.5-5.1); TOTAL BILIRUBIN 0.5 mg/dL (<0.1-1.0); TOTAL PROTEIN 6.7 g/dL (6.4-8.2)
--- NOTE | 2019-01-02 08:28 | NUR ---
PATIENT IS NOT PROGRESSING IN HER CARE PLAN. PATIENT CONVERTED TO RAPID ATRIAL FLUTTER DURING SHIFT WITH NURSE ATTEMPTING TO CONTROL HEART RATE THROUGH A VARIETY OF MEDICATIONS. PATIENT IS CURRENTLY ON A CARDIZEM GTT GOING AT 14. FULLY ORIENTED, PATIENT IS ABLE TO PARTICIPATE IN CARE. NIH Q4 SCORED ZERO. UP MULTIPLE TIMES WITH ASSISTANCE TO BEDSIDE COMMODE INCIDENT FREE.
[2019-01-02 20:18] LABS: HEMOGLOBIN 10.6 gm/dL (12.0-15.0)
[2019-01-03] VITALS (12 sets, daily range): BP systolic 125–180; BP diastolic 57–82
[2019-01-03 06:41] LABS: ABSOLUTE NEUTROPHILS 3.5 thou/uL (1.4-8.2); BASOPHILS 0.6 % (0.0-2.0); EOSINOPHILS 3.1 % (0.0-3.0); HEMATOCRIT 31.4 % (37.0-47.0); HEMOGLOBIN 9.9 gm/dL (12.0-15.0); MCH 24.7 pg (26.0-34.0); MCHC 31.7 g/dL (28.0-37.0); MCV 77.9 fL (80.0-100.0); MONOCYTES 9.7 % (1.0-8.0); PLATELET COUNT 228 thou/uL (150-400); POLYS 45.6 % (36.0-66.0); RBC 4.03 mil/uL (4.20-5.00); RDW 15.6 % (10.5-14.5); WBC 7.7 thou/uL (4.0-11.0)
[2019-01-03 06:57] LABS: ALBUMIN 3.2 g/dL (3.4-5.0); CALCIUM 8.7 mg/dL (8.5-10.1); CREATININE 0.8 mg/dL (0.6-1.0); MAGNESIUM 1.6 mg/dL (1.8-2.4); PHOSPHORUS 2.9 mg/dL (2.5-4.9); POTASSIUM 3.7 mmol/L (3.5-5.1); TOTAL BILIRUBIN 0.5 mg/dL (<0.1-1.0); TOTAL PROTEIN 6.3 g/dL (6.4-8.2)
--- NOTE | 2019-01-03 08:53 | EKG ---
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 : 1930 Requested By: Samara Caicedo Order Number: [id number] MD: Chuck Hernandez Measurements Intervals [place] Rate: 78 P: 4 NH: 222 QRS: 37 QRSD: 167 T: -11 QT: 466 QTc: 531 Interpretive Statements Sinus rhythm Borderline prolonged NH interval Right bundle branch block Compared to ECG 12/30/2018 17:04:11 Sinus rhythm is now present Electronically Signed On 01-03-2019 8:52:57 CDT by Chuck Hernandez [email or web address] <ELECTRONICALLY SIGNED> By: Chuck Hernandez MD, [facility] 01/03/19 0852 02 Chuck Hernandez MD, [facility] /EPI
--- NOTE | 2019-01-03 09:14 | EKG ---
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 : 1930 Requested By: Bela Mccormack Order Number: [id number] MD: Chuck Hernandez Measurements Intervals [place] Rate: 128 P: [place]: QRS: 64 QRSD: 149 T: -8 QT: 371 QTc: 542 Interpretive Statements Atrial flutter with a rapid ventricular response Right bundle branch block Compared to ECG 12/30/2018 17:04:11 atrial flutter has replaced sinus rhythm Electronically Signed On 01-03-2019 9:13:37 CDT by Chuck Hernandez [email or web address] <ELECTRONICALLY SIGNED> By: Chuck Hernandez MD, FACC 01/03/19 0913 [id number] Chuck Hernandez MD, [facility] /EPI
--- NOTE | 2019-01-03 09:57 | NUR ---
ON-GOING ASSESSMENT: PT WAS IN AFIB YESTERDAY. PLANS ARE FOR PT TO GET A PACEMANKER PLACED TOMORROW AM. [facility] IS CONTINUING TO FOLLOW PATIENT. CM WILL CONTINUE TO FOLLOW TO ASSIST NEEDED.
[2019-01-03 11:35] LABS: APTT 25.3 Seconds (24.5-32.8); PROTIME 10.7 Seconds (9.3-11.4)
--- NOTE | 2019-01-03 16:05 | CATHLAB ---
[facility] [email or web address] [address] INVASIVE PROCEDURE REPORT Name: AMOL YANG Room #: 349-I ADM IN .R.#: [id number] Admission: 12/30/18 Attend Phys: Samara Caicedo, Discharge: Date of : 11/19/30 Report #: [id number] THIS REPORT FOR: //name// APPROVED REPORT Study performed: 01/03/2019 12:02:10 Patient Status: In-Patient Room #: Event Personnel: Wes Marquis Tufter, Mnoe Pena RN, Claudia Hammond RTR, ENVIRONMENTAL HEALTH AND SAFETY INTERN Monitor, Maria Alejandra Coppola RTR Scrub Exam: Insertion of Dual Chamber Permanent Pacemaker Indications: 6 sinus syndrome, tachybradycardia syndrome The patient is a 88 year-old female with a history of . Implanted Devices: [employer]: ASSURITY MRI; REFERENCE # [id number]; SN#: [id number]; USE BEFORE: 2020-06-13 [employer]: TENDRIL STS; REFERENCE # [id number]; SN#: [id number]; USE BEFORE: 2021-06-13 [employer]: TENDRIL STS; REFERENCE # [id number]; SN#: [id number]; USE BEFORE: 2021-10-13 Procedure The patient underwent informed consent. We discussed the details of the procedure including the risks, which include, but not limited to bleeding, infection, vascular damage, cardiac perforation, and pneumothorax. She understood these risks and was willing to proceed. As such, she was brought to the EP/Cardiac Catheterization laboratory in a fasting and sedated state and prepped and draped in a sterile fashion, received IV antibiotics prior to initiation of the procedure and a venogram was performed showing patency of the left axillary vein. The patient underwent MAC anesthesia, with no anesthesia related complications. The patient was brought to the EP/Cardiac Catheterization laboratory and the left chest and shoulder were prepped and draped in a sterile manner. During this case, Fluoroscopy and visipaque 10cc were used for imaging. The left subclavian region was infiltrated with 2% Lidocaine subcutaneous anesthesia. A transverse incision was made in the left upper chest cavity. The subcutaneous pocket was formed via blunt dissection. Percutaneous venous access was achieved and an introducer sheath was inserted into [address] [address] INVASIVE PROCEDURE REPORT Name: TREYHEMPSTEAD Room #: 349-I [facility].#: [id number] Admission: 12/30/18 Attend Phys: Samara Caicedo, Discharge: Date of : 11/19/30 Report #: [id number] the left Subclavian vein. Sheaths were positions using the modified Seldinger technique Through the introducer sheaths the atrial and ventricular lead wires were positioned in the right atrial appendage and right ventricular apex respectively. Utilizing fluoroscopic guidance, the atrial and ventricular lead wires were advanced over the wires and positioned in the right atria and right ventricle respectively. Capturing and sensing thresholds were verified. Electrode Parameters P Wave: 1.5mV R Wave: 9.5mV Atrial Threshold: NOT PERFORMED Ventricular Threshold: 0.5V @ 0.4ms Atrial Resistance: 460 OHMS Ventricular Resistance: 680 ohms Dual Chamber The atrial and ventricular leads were then secured using sutures. The subcutaneous pocket was irrigated with ancef antibiotic solution.The atrial and ventricular leads were attached to the appropriate receptacles on the pulse generator and set screws firmly tightened to insure adequate contact and stability. The lead and pulse generator were placed into the subcutaneous pocket. Sharp and sponge counts were confirmed to be correct. At this time the pocket was closed subcutaneously with a 3O nonabsorbable suture in a running locking stitch and the skin was closed with a 3.0 Vicryl utilizing a subcuticular stitch. The operative site was dressed in sterile fashion with Steri-Strips, 4 x 4, OpSite and the patient was transferred to the floor in stable condition. Complications The patient tolerated the procedure well and there were no complications associated with the procedure. Findings Specimens Removed: No Estimated Blood Loss: 10 mL Conclusion 1. Successful implantation of a [employer] dual-chamber pacemaker system [facility] [address] [address] INVASIVE PROCEDURE REPORT Name: AMOL YANG Room #: 349-I [facility] IN M.R.#: [id number] Admission: 12/30/18 Attend Phys: Samara Caicedo, Discharge: Date of : 11/19/30 Report #: [id number] Recommendations 1. Routine post pacemaker insertion <ELECTRONICALLY SIGNED> By: Wes Marquis MD 01/03/195 04 04 Wes Marquis MD /INF
--- NOTE | 2019-01-03 17:12 | EKG ---
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1930 Requested By: Ezekiel Amezquita Order Number: [id number] MD: Chuck Hernandez Measurements Intervals [place] Rate: 97 P: [place]: QRS: 25 QRSD: 150 T: 2 QT: 423 QTc: 538 Interpretive Statements Atrial fibrillation with a moderate ventricular response Right bundle branch block Compared to ECG 12/30/2018 17:04:11 Heart rate has slowed Electronically Signed On 01-03-2019 17:12:03 CDT by Chuck Hernandez [email or web address] <ELECTRONICALLY SIGNED> By: Chuck Hernandez MD, [facility] 01/03/19 1712 0 0 Chuck Hernandez MD, [facility] /EPI
--- NOTE | 2019-01-03 18:18 | NUR ---
ASSUMMED PT CARE AT APPROXIMATELY 1600. PT A&O X4-FORGETFUL AT TIMES. ASSESSMENT CHARTED. FALL PRECAUTIONS IN PLACE. PT DENIES CHEST PAIN. PT DENIES SOB. PT STATED SHE HAS ACUTE PAIN. PT RECIEVED ANALGESICS TO RELIEVE PAIN. PT STATED HER PAIN HAS DECREASED. PT COMPLETING POST PACEMAKER VITALS. PACEMAKER SITE C/D/I. VITAL SIGNS STABLE. PT COMFORTABLE IN BED. PT DENIES FURTHER CONCERNS AT THE MOMENT.
--- NOTE | 2019-01-03 20:12 | NUR ---
PT'S RESULT POST-PACEMAKER PLACEMENT WAS CALLED IN TO ON-CALL BED WORKER (DR JAIME). PT IS STABLE. NO SIGN OF DISTRESS NOTED. PT IS STILL ON CARDIZEN DRIP, PER WEAN PT OFF CARDIZEM DRIP. DENIES ANY NEEDS AT THIS TIME.
[2019-01-04] VITALS (14 sets, daily range): BP systolic 124–178; BP diastolic 49–77
[2019-01-04 04:55] LABS: PROTIME 10.7 Seconds (9.3-11.4)
--- NOTE | 2019-01-04 05:03 | NUR ---
ASSUMED PT CARE AT 1900. PT IS ALERT BUT FORGETFUL. NO FAMILY AT BEDSIDE. NO SIGN OF DISTRESS NOTED. PT HAS AN ARM IMMOBILIZER DUE TO PACEMAKER PLACEMENT. NO SIGN OF DISTRESS NOTED IN PT. PAIN MED ADMINISTERED TO PT REQUESTED. ASSESSMENT COMPLETED AND CHARTED. FALL PRECAUTION IN PLACE. SCHEDULED MEDS ADMINISTERED TO PT. TOLERATED PO INTAKE. BLOOD PRESSURE ELEVATED. HYDRALAZINE ADMINISTERED FOR ELEVATED BP. DENIES ANY FURTHER NEEDS AT THIS TIME.
[2019-01-04 05:08] LABS: ALBUMIN 3.3 g/dL (3.4-5.0); CALCIUM 8.7 mg/dL (8.5-10.1); CREATININE 0.9 mg/dL (0.6-1.0); MAGNESIUM 1.6 mg/dL (1.8-2.4); PHOSPHORUS 3.5 mg/dL (2.5-4.9); POTASSIUM 4.3 mmol/L (3.5-5.1); TOTAL BILIRUBIN 0.7 mg/dL (<0.1-1.0); TOTAL PROTEIN 6.2 g/dL (6.4-8.2)
[2019-01-04 05:47] LABS: ABSOLUTE NEUTROPHILS 9.5 thou/uL (1.4-8.2); BASOPHILS 0.5 % (0.0-2.0); EOSINOPHILS 0.6 % (0.0-3.0); HEMATOCRIT 30.4 % (37.0-47.0); HEMOGLOBIN 9.7 gm/dL (12.0-15.0); LYMPHOCYTES 18.3 % (24.0-44.0); MCH 24.5 pg (26.0-34.0); MCHC 31.9 g/dL (28.0-37.0); MCV 76.9 fL (80.0-100.0); MONOCYTES 7.2 % (1.0-8.0); PLATELET COUNT 270 thou/uL (150-400); POLYS 73.4 % (36.0-66.0); RBC 3.96 mil/uL (4.20-5.00); RDW 15.5 % (10.5-14.5); WBC 12.9 thou/uL (4.0-11.0)
--- NOTE | 2019-01-04 16:42 | NUR ---
ASSUMMED PT CARE AT APPROXIMATELY 0700. PT A&O X4 BUT ALSO FORGETFUL AT TIMES. FREQUENT REORIENTATION. FALL PRECAUTIONS IN PLACE. ASSESSMENT CHARTED. VITAL SIGNS STABLE. PT DENIES HAVING CHEST PAIN. PT STATES SHE DOES HAVE SOB. PT ON NC. PT STATES SHE IS NOT SOB ON NC. O2 SAT STABLE. PT STATES SHE HAS CHRONIC BACK PAIN. PT RECEIVING ANALGESICS FOR PAIN. PT STATES ANALGESICS RELEIVE PAIN. COMMINUCATED X-RAY RESULTS C HCP. PT RECEIVED A L SIDED CHEST TUBE TODAY. DRESSINGS C/D/I. PT POST VITAL SIGNS COMPLETE AND ARE STABLE. BEDREST COMPLETE. PT AND FAMILY EDUCATED ABOUT POC. PT AND FAMILY STATED UNDERSTANDING AND DENIED HAVING FURTHER QUESTIONS. PT RESTING COMFORTABLY IN BED. PT STATED NO FURTHER CONCERNS. PACEMAKER SITE C/D/I.
[2019-01-05 00:48] VITALS: BP 131/59
[2019-01-05 04:55] VITALS: BP 164/56
[2019-01-05 05:31] LABS: ABSOLUTE NEUTROPHILS 4.9 thou/uL (1.4-8.2); BASOPHILS 0.5 % (0.0-2.0); EOSINOPHILS 3.7 % (0.0-3.0); HEMATOCRIT 27.9 % (37.0-47.0); LYMPHOCYTES 26.7 % (24.0-44.0); MCHC 32.2 g/dL (28.0-37.0); MCV 77.5 fL (80.0-100.0); POLYS 60.1 % (36.0-66.0); RBC 3.59 mil/uL (4.20-5.00); RDW 15.5 % (10.5-14.5); WBC 8.2 thou/uL (4.0-11.0)
--- NOTE | 2019-01-05 05:35 | NUR ---
ASSUMED PT CARE AT 1900. FAMILY AT BEDSIDE. PT IS ALERT AND ORIENTED. PT HAS A LEFT CHEST TUBE IN PLACE THAT IS CONNECTED TO SUCTION. PT IS ON OXYGEN. CHEST TUBE IS IN PLACE. ASSESSMENT COMPLETED AND DOCUMENTED. SCHEDULED MEDS ADMINISTERED TO PT. PAIN MEDS ADMINISTERED TO PATIENT. DENIES ANY FURTHER NEEDS AT THIS TIME.
[2019-01-05 05:41] LABS: PLATELET COUNT 191 thou/uL (150-400)
[2019-01-05 05:46] LABS: CALCIUM 8.8 mg/dL (8.5-10.1); CREATININE 0.9 mg/dL (0.6-1.0); POTASSIUM 4.7 mmol/L (3.5-5.1)
[2019-01-05 07:00] VITALS: BP 165/66
[2019-01-05 12:01] VITALS: BP 122/65
--- NOTE | 2019-01-05 14:46 | NUR ---
patient with chest tube present. Cont dc plan of home to sons home with [facility].
[2019-01-05 16:09] VITALS: BP 155/58
--- NOTE | 2019-01-05 17:43 | NUR ---
PT ALERT AND ORIENTED TIMES FOUR. VSS, 93%RA, AFIB ON TELE. LEFT SIDE CHEST TUBE TO WALL SUCTION. PT C/O PAIN PRN PAIN MEDICATIONS GIVEN WITH GOOD RELEIF. PT WORKED WITH PT/OT. UP TO BSC WITH ASSIST ON ONE. PT HAS ONLY EATEN A SMALL PORTIONS OF MEALS TODAY. PT SLOWLY PROGRESSING TOWRADS POC GOALS.
[2019-01-05 21:28] VITALS: BP 170/60
--- NOTE | 2019-01-06 05:09 | NUR ---
PATIENTS CARES WERE ASSUMED AT SHIFT CHANGE, PATIENT WAS ASSESSED AND MEDS WERE PASSED. PATIENT CONTINUES TO TAKE TYLENOL FOR HER PAIN. IT DOES APPER TO WORK WELL FOR HER. HOURLY ROUNDING WAS DONE. THE BED IS IN A LOW AND LOCKED POSITION
[2019-01-06 05:10] VITALS: BP 177/60
[2019-01-06 08:55] VITALS: BP 159/65
--- NOTE | 2019-01-06 11:23 | NUR ---
Assess due to length of stay. Admitted with afib, need for pacemaker and pneumothorax with chest tube placement. Pt reports usually eats fine but has been nauseated and constipated and not eating past few days. States "they are going to give me something for it". No special food requests except limited spicy foods. ST had assessed and recommended mechanical altered diet, no straws. No wt chagnes reported by pt but has 2 different admit wts of 175 lb vs 164 lb and usual wt trends around 170 lb. Low nutrition risk, follow for improved intake once constipation resolved.
[2019-01-06 12:50] VITALS: BP 143/58
[2019-01-06 16:26] VITALS: BP 143/58
[2019-01-06 16:45] VITALS: BP 150/74
--- NOTE | 2019-01-06 17:53 | NUR ---
ASSUMED CARE AT SHIFT CHANGE, ALERT AND ORIENTED X4. HT 78-90/MIN WITH 1AVB AND BBB. BP 159-143/65-58, AND AFEBRILE. REPOSITIONED FOR COMFORT NEEDED. CT INPLACE, AND WILL CONTINUE WITH POC.
[2019-01-06 21:14] VITALS: BP 179/74
--- NOTE | 2019-01-07 04:08 | NUR ---
PATIENTS CARES WERE ASSUMED AT SHIFT CHANGE. PATIENT WAS ASSESSED AND MEDS WERE PASSED. HOURLY ROUNDING WAS DONE. BED ALARM STAYED ON AND THE BED IS IN A LOW AND LOCKED POSITION. WILL PASS ON REPORT FOR THE DAY NURSE TO REQUEST FROM THE DOCTOR AN ORDER FOR NYSTSTIN POWDER FOR UNDER THE PATIENTS APRON. SHE HAS A PUNGENT ORDER UNDER THE SHIK FOLD OF HER APRON. SHE NEEDS TO SHOWER AND HAVE A MATERIAL PLACED TO ADSORBE THE SWEAT.
[2019-01-07 04:17] VITALS: BP 153/68
[2019-01-07 07:43] VITALS: BP 177/93
[2019-01-07 11:22] VITALS: BP 159/69
[2019-01-07 15:15] VITALS: BP 135/50
--- NOTE | 2019-01-07 16:55 | NUR ---
Possible dc 1-2 days if chest tube dc'd. [facility] aware. They will need dc orders faxed to [phone] and their oncall nurse notified of dc [phone].
[2019-01-07 16:57] VITALS: BP 143/58
[2019-01-07 21:07] VITALS: BP 155/71
--- NOTE | 2019-01-08 03:31 | NUR ---
ASSUMED PT CARE AT 1900. PT A/OX4, VITAL SIGNS STABLE, ASSESSMENT CHARTED. NO COMPLAINTS OF PAIN. CHEST TUBE IN PLACE, CONNECTED TO SUCTION PER DOCTOR'S ORDERS. PT RESTING COMFORTABLY IN BED. FREQUENT MONITORING AND ASSISTANCE. PROGRESSING SLOWLY TOWARD PLAN OF CARE. WILL CONTINUE TO MONITOR.
[2019-01-08 04:21] VITALS: BP 159/54
[2019-01-08 08:21] VITALS: BP 175/81
[2019-01-08 12:06] VITALS: BP 129/59
[2019-01-08 16:16] VITALS: BP 151/71
--- NOTE | 2019-01-08 16:45 | NUR ---
PT ALERT AND ORIENTED. REPORT HAVING DALEY BUT DENIED THE NEED FOR PAIN MED. LEFT CHEST TUBE INTACT. UP IN THE CHAIR THIS SHIFT. WILL CONTINUE TO MONITOR.
[2019-01-08 20:10] VITALS: BP 162/62
[2019-01-09 05:00] VITALS: BP 177/69
--- NOTE | 2019-01-09 06:03 | NUR ---
ASSUMED PT CARE AT 1900. PT VSS AND PT C/O NO PAIN. CHEST TUBE IS ON SUCTION PER PHYSICIAN AND WILL ASSESS IN MORNING IF CHANGES ARE TO BE MADE. PT HAD MINIMAL OUTPUT VIA CHEST TUBE. PT IS STEADY ON FEET TO COMMODE. PT SLEPT THRU NIGHT. WILL CONTINUE TO MONITOR PER POC.
[2019-01-09 07:10] VITALS: BP 164/77
[2019-01-09 11:19] VITALS: BP 113/43
--- NOTE | 2019-01-09 14:57 | NUR ---
ASSESSMENT CHARTED. PT ALERT AND ORIENTED. HAD ELEVATED BP THIS AM. SCHEDULED BP MED GIVEN ORDERED. CHEST TUBE INTACT. SEEN BY DR. WHITLOCK. ORDERS NOTED. PROGRESSING WELL TOWARDS DISCHARGE GOAL. WILL CONTINUE TO MONITOR.
[2019-01-09 15:27] LABS: HEMATOCRIT 30.2 % (37.0-47.0); HEMOGLOBIN 9.8 gm/dL (12.0-15.0); MCH 25.2 pg (26.0-34.0); MCHC 32.3 g/dL (28.0-37.0); MCV 77.8 fL (80.0-100.0); RBC 3.88 mil/uL (4.20-5.00); RDW 15.7 % (10.5-14.5); WBC 7.1 thou/uL (4.0-11.0)
[2019-01-09 15:39] LABS: CALCIUM 8.7 mg/dL (8.5-10.1); CREATININE 0.7 mg/dL (0.6-1.0)
--- NOTE | 2019-01-09 17:57 | NUR ---
LEFT CHEST TUBE REMOVED TODAY BY DR. WHITLOCK.
[2019-01-09 20:15] VITALS: BP 176/64
[2019-01-09 20:18] VITALS: BP 178/58
[2019-01-10] VITALS (7 sets, daily range): BP systolic 135–180; BP diastolic 52–79
--- NOTE | 2019-01-10 04:43 | NUR ---
ASSUMED PT CARE AT 1900. VSS. BP SLIGHTLY ELEVATED, SCHEDULED METOPROLOL GIVEN, BP CAME DOWN SOME AT MIDNIGHT. BP ELEVATED AGAIN THIS AM, HYDRALAZINE PRN GIVEN. PT HAS GOOD URINE OUTPUT, WAS STEADY ON HER FEET THE 4 TIMES SHE GOT UP TO VOID WITH THE ASSISTANCE OF HER CANE. PT IS STABLE, COMPLAINED OF PAIN; TYLENOL GIVEN, NO FURTHER COMPLAINTS, CHEST TUBE SITE DRESSINGS IN PLACE, PACER SITE INTACT. WILL CONTINUE TO MONITOR PER POC.
[2019-01-10 05:26] LABS: HEMATOCRIT 30.7 % (37.0-47.0); HEMOGLOBIN 9.7 gm/dL (12.0-15.0); MCH 24.7 pg (26.0-34.0); MCHC 31.5 g/dL (28.0-37.0); MCV 78.5 fL (80.0-100.0); RBC 3.91 mil/uL (4.20-5.00); RDW 15.6 % (10.5-14.5); WBC 5.8 thou/uL (4.0-11.0)
[2019-01-10 05:31] LABS: CALCIUM 8.7 mg/dL (8.5-10.1); CREATININE 0.7 mg/dL (0.6-1.0); MAGNESIUM 1.9 mg/dL (1.8-2.4); POTASSIUM 3.8 mmol/L (3.5-5.1)
--- NOTE | 2019-01-10 16:23 | NUR ---
ASSESSMENT CHARTED. PT ALERT AND ORIENTED. BP SLIGHTLY ELEVATED THIS AM. SCHEDULED BLOOD PRESSURE MEDS GIVEN ORDERED. DR. NEUMANN AWARE. PT AMBULATED X1 THIS SHIFT WITH PHYSICAL THERAPIST. DENIES HAVING PAIN OR DISCOMFORT. NO CONCERNS AT THIS TIME. PROGRESSING WELL TOWARDS DISCHARGE GOAL. WILL CONTINUE TO MONITOR.
--- NOTE | 2019-01-11 04:25 | NUR ---
ASSESSMENT DOCUMENTED.PT RESTED WELL THROUGH THE NOC.VSS.DENIES NEEDS.UP TO BR WITH CANE AND SBA.POC IS TO DISCHARGE TODAY TO HOME.WILL CONT TO MONITOR PER POC.
[2019-01-11 05:37] VITALS: BP 141/52
[2019-01-11 08:00] VITALS: BP 151/53
[2019-01-11 11:19] VITALS: BP 130/58
[2019-01-11 12:43] VITALS: BP 143/58
[2019-01-11] MEDS ORDERED: LOPRESSOR25 PO (14:11)
[2019-01-11] MEDS ORDERED: VERAPAMIL SR 1120 MG PO (14:11)
[2019-01-11] MEDS ORDERED: LISINOPRIL10 MG PO (14:12)
[2019-01-11 14:25] VITALS: BP 143/58
--- NOTE | 2019-01-11 14:50 | NUR ---
ASSEEMENT CHARTED, DISCHARGE AND MEDICATION INSTRUCTION GIVEN TO PATEINT AND SHE VERBALIZED UNDERSTANDING, AND PATIENT DISCHARGED HOME WITH HER SON.
[2019-01-11 15:08] VITALS: BP 143/58
--- NOTE | 2019-01-11 15:46 | NUR ---
PT DISCHARGING TODAY TO HOME WITH [facility] FAXED DC ORDERS/SUMMARY SPOKE WITH MICHAEL IN INTAKE AND SHE RECEIVED DC ORDERS AND WILL NOTIFY PT TIME OF VISITS.
--- NOTE | 2019-01-11 16:03 | NUR ---
patient to dc home and planning to stay at her sons home. [facility] care has address of son.
--- NOTE | 2019-01-14 14:17 | HC ---
[facility] [place] [address] CONSULTATION Name: AMOL YANG Room #: 219-P [facility] IN M.R.#: [id number] Admission: 12/30/18 Attend Phys: Samara Caicedo MD Discharge: 01/11/19 Date of : 11/19/30 Report #: [id number] THIS REPORT FOR: //name// CC: Samara Little DATE OF SERVICE: 01/05/2019 HISTORY OF PRESENT ILLNESS: This is an 88-year-old female patient on whom a neurological consultation was requested today for an episode she had. She said she felt dizzy and her blood pressure systolic was in 90s and she noticed some weakness on the right side, although she had generalized weakness. Since then, she has been found to have multiple pathologies. 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 She has a newly diagnosed AFib. She had low hemoglobin, her blood pressure was low and she has pulmonary issues and she is being seen by Pulmonary. She apparently has pneumothorax. She has a history of aortic stenosis. She also has renal problems. REVIEW OF SYSTEMS: A 14-point review of system was carried out. She is having pulmonary issues. She is having cardiac issues. She does not believe there is any change in eyes or ENT. She does not have any new musculoskeletal, constitutional, dermatological, psychiatric, throat, allergic symptom associated with present symptomatology. She is not complaining of any urinary symptoms. She did have some nausea, vomiting that record indicates at one time. PAST MEDICAL HISTORY: Negative for any stroke. FAMILY HISTORY: Negative for any early age stroke. SOCIAL HISTORY: She says she lives by herself and able to do her activities. She does use a walker. PHYSICAL EXAMINATION: Indicates she is alert, responsive, able to follow simple and complex commands. Her speech, concentration, fund of knowledge and memory appears her baseline. Cranial nerve examination 2 through 12 indicates no focality. She moves all 4 extremities. In the lower extremities, she is weak, but her position sense is present. Reflexes are diminished, but symmetrically. There is no cerebellar sign. I could not look at the patient's fundus. She does have a history of atrial fibrillation. She does not appear to be in marked respiratory distress, although she has a tube put in the chest. Pulses are palpable. No edema is there. Blood pressure is 155/58, respirations 18, pulse is 76, temperature is 98.1. When she came in, she had an MRI and CT scan done. 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 [address] [address] [facility]: [facility]P [facility] IN M.R.#: [id number] Admission: 12/30/18 Attend Phys: Samara Caicedo MD Discharge: 01/11/19 Date of : 11/19/[birth year] Report #: [id number] Her lab indicates a white count of 8.2; she is anemic with a hemoglobin of 9.0. IMAGING STUDIES: As described above. IMPRESSION: Most likely etiology for the patient's symptom is that she had a drop in blood pressure and the old lacunar infarct got transiently symptomatic. However, she does have an evidence of old infarct and she is in atrial fibrillation. She was on anticoagulation and Cardiology is already following this patient and we will defer to them when they would like to restart anticoagulation in this patient. Neurologically, the only evaluation I will suggest at this time is getting a carotid Doppler done. If that is okay, then we can just watch the patient and maybe do an MRA of the [place] as an outpatient. She does need secondary stroke prophylaxis with antithrombotic therapy, which will depend upon GI as well as Cardiology. Her LDL is 91 and I will suggest statin. Otherwise, I do not have anything specific to add. Thank you very much for this referral. We will follow this patient only as needed. <ELECTRONICALLY SIGNED> By: Zhou Jimenez MD 01/14/19 1417 [id number] Zhou Jimenez MD /nt
== END 2019-01-11 15:45 | disposition home health service (06) | DRG 242 ==
LOC: ER 16:50 → 3W 18:27 → EROBS 18:27 → 3W 22:50 → 2N 01-03 16:18 → ENTRNSPT 01-11 14:45 → 2N 01-11 15:45
PROVIDERS: Emergency Medicine; Internal Medicine; Nurse Practitioner; ADMIT Internal Medicine
PROC: 0JH606Z Insertion of Pacemaker, Dual Chamber into Chest Subcutaneous Tissue and Fascia, Open Approach (ICD-10-PCS; 2019-01-03)
PROC: 02HK3JZ Insertion of Pacemaker Lead into Right Ventricle, Percutaneous Approach (ICD-10-PCS; 2019-01-03)
PROC: 02H63JZ Insertion of Pacemaker Lead into Right Atrium, Percutaneous Approach (ICD-10-PCS; 2019-01-03)
PROC: B51N1ZZ Fluoroscopy of Left Upper Extremity Veins using Low Osmolar Contrast (ICD-10-PCS; 2019-01-03)
PROC: 0W9B30Z Drainage of Left Pleural Cavity with Drainage Device, Percutaneous Approach (ICD-10-PCS; principal; 2019-01-04)
DX: I48.0 Paroxysmal atrial fibrillation (principal); N17.0 Acute kidney failure with tubular necrosis; G45.9 Transient cerebral ischemic attack, unspecified; E87.1 Hypo-osmolality and hyponatremia; D62 Acute posthemorrhagic anemia; N17.9 Acute kidney failure, unspecified; J95.811 Postprocedural pneumothorax; I44.2 Atrioventricular block, complete; I48.92 Unspecified atrial flutter; I49.5 Sick sinus syndrome; I48.20 Chronic atrial fibrillation, unspecified; I95.9 Hypotension, unspecified; N18.9 Chronic kidney disease, unspecified; E83.42 Hypomagnesemia; K21.9 Gastro-esophageal reflux disease without esophagitis; I12.9 Hypertensive chronic kidney disease with stage 1 through stage 4 chronic kidney disease, or unspecified chronic kidney disease; E11.22 Type 2 diabetes mellitus with diabetic chronic kidney disease; K59.03 Drug induced constipation; T40.2X5A Adverse effect of other opioids, initial encounter; Z66 Do not resuscitate; I08.2 Rheumatic disorders of both aortic and tricuspid valves; Z86.73 Personal history of transient ischemic attack (TIA), and cerebral infarction without residual deficits; Z23 Encounter for immunization; Z79.01 Long term (current) use of anticoagulants; Z88.8 Allergy status to other drugs, medicaments and biological substances; Z79.899 Other long term (current) drug therapy; Z79.82 Long term (current) use of aspirin; Y92.89 Other specified places as the place of occurrence of the external cause; Y83.8 Other surgical procedures as the cause of abnormal reaction of the patient, or of later complication, without mention of misadventure at the time of the procedure
CPT/HCPCS: 10081; 10879; 62110; 62900; 70005

== ENCOUNTER 2019-01-15 11:47 | Emergency (ER) | payer OTHER ==
[~2019-01-15] VITALS: Ht 152.4 cm; Wt 73.5 kg
[~2019-01-15 11:47] MED LIST changes: +LISINOPRIL10 MG PO; +LOPRESSOR25 PO; +VERAPAMIL SR 1120 MG PO
[2019-01-15] MEDS ORDERED: CLEOCIN HCL150 MG PO (13:21)
[2019-01-15 14:04] VITALS: BP 147/63
== END 2019-01-15 14:14 | disposition home or self-care (01) ==
LOC: ER 11:47
DX: T80.1XXA Vascular complications following infusion, transfusion and therapeutic injection, initial encounter (principal); I10 Essential (primary) hypertension; I48.91 Unspecified atrial fibrillation; K21.9 Gastro-esophageal reflux disease without esophagitis; Z86.73 Personal history of transient ischemic attack (TIA), and cerebral infarction without residual deficits; Z88.8 Allergy status to other drugs, medicaments and biological substances

== ENCOUNTER → 2019-08-30 | Outpatient (CLI) | payer OTHER ==
[~2019-08-30] MED LIST changes: +CLEOCIN HCL150 MG PO
== END ==
LOC: SJCVC 10:23
PROVIDERS: ATTEND Internal Medicine Cardiovascular Disease
DX: Z45.018 Encounter for adjustment and management of other part of cardiac pacemaker (principal); I49.5 Sick sinus syndrome; I48.0 Paroxysmal atrial fibrillation; I10 Essential (primary) hypertension; E78.5 Hyperlipidemia, unspecified; K21.9 Gastro-esophageal reflux disease without esophagitis; Z79.82 Long term (current) use of aspirin; Z79.899 Other long term (current) drug therapy

== ENCOUNTER → 2019-11-03 | Outpatient (CLI) | payer OTHER | LOC: SJCVC 14:24 | PROVIDERS: ATTEND Internal Medicine Cardiovascular Disease | DX: Z45.018 Encounter for adjustment and management of other part of cardiac pacemaker (principal); R94.31 Abnormal electrocardiogram [ECG] [EKG]; I45.10 Unspecified right bundle-branch block; I48.0 Paroxysmal atrial fibrillation; R55 Syncope and collapse; I49.5 Sick sinus syndrome; I10 Essential (primary) hypertension; Z79.899 Other long term (current) drug therapy ==

== ENCOUNTER 2019-11-29 11:22 | Emergency (ER) | payer OTHER ==
[~2019-11-29] VITALS: Ht 160 cm; Wt 74.8 kg
[2019-11-29] MEDS ORDERED: ELIQUIS5 MG PO (11:29)
[2019-11-29 11:45] LABS: ABSOLUTE NEUTROPHILS 3.2 thou/uL (1.4-8.2); BASOPHILS 0.6 % (0.0-2.0); EOSINOPHILS 1.4 % (0.0-3.0); HEMATOCRIT 41.1 % (37.0-47.0); HEMOGLOBIN 13.5 gm/dL (12.0-15.0); LYMPHOCYTES 43.8 % (24.0-44.0); MCH 29.2 pg (26.0-34.0); MCHC 32.9 g/dL (28.0-37.0); MCV 88.7 fL (80.0-100.0); MONOCYTES 8.3 % (1.0-8.0); PLATELET COUNT 202 thou/uL (150-400); POLYS 45.9 % (36.0-66.0); RBC 4.63 mil/uL (4.20-5.00); RDW 14.3 % (10.5-14.5); WBC 6.9 thou/uL (4.0-11.0)
[2019-11-29 11:58] LABS: ANION GAP 13 mmol/L (7-16); BUN 13 mg/dL (7-18); CALCIUM 8.9 mg/dL (8.5-10.1); CHLORIDE 102 mmol/L (98-107); CO2 26 mmol/L (21-32); CREATININE 0.8 mg/dL (0.6-1.0); GLUCOSE 104 mg/dL (74-106); POTASSIUM 3.3 mmol/L (3.5-5.1); SODIUM 141 mmol/L (136-145)
[2019-11-29 12:04] LABS: MAGNESIUM 2.1 mg/dL (1.8-2.4); TROPONIN-I <0.06 ng/mL (<0.06)
[2019-11-29 13:01] LABS: URINE BILIRUBIN NEGATIVE (Negative); URINE BLOOD TRACE (Negative); URINE CLARITY SL CLOUDY; URINE COLOR YELLOW; URINE GLUCOSE-RANDOM* NEGATIVE (Negative); URINE KETONES NEGATIVE (Negative); URINE PROTEIN (DIPSTICK) NEGATIVE (Negative); URINE UROBILINOGEN 0.2 E.U./dl (0.2-1.0)
[2019-11-29 13:02] LABS: URINE LEUKOCYTES-REFLEX 2+ (Negative); URINE NITRITE-REFLEX POSITIVE (Negative)
[2019-11-29 13:08] LABS: SQUAMOUS 0-3 Few /LPF (0-3)
[2019-11-29 13:09] LABS: BACTERIA-REFLEX >30 Many /HPF (None Seen); CASTS None Seen /LPF (None Seen); WBC CLUMPS Moderate (None Seen)
[2019-11-29 13:10] LABS: CRYSTALS None Seen /LPF (None Seen); URINE RBC 0-2 Rare /HPF (0-2)
[2019-11-29 13:27] VITALS: BP 166/63
--- NOTE | 2019-11-29 13:42 | EKG ---
[facility] [place] [address] ELECTROCARDIOGRAM REPORT Name: AMOL YANG Room #: REG [facility].#: [id number] Admission: 11/29/19 Attend Phys: Discharge: Date of : 11/19/[birth year] Report #: [id number] THIS REPORT FOR: cc: Michael Little Steven F. 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: [facility] : 1930 Requested By: Buddy Humphreys Order Number: [id number] MD: Faizan Jacob Measurements Intervals [place] Rate: 78 P: -19 [place]: 192 QRS: 44 QRSD: 155 T: 26 QT: 453 QTc: 517 Interpretive Statements Sinus rhythm Right bundle branch block Compared to ECG 01/03/2019 08:41:26 Atrial fibrillation no longer present Electronically Signed On 11-29-2019 13:42:20 CDT by Faizan Jacob [email or web address] <ELECTRONICALLY SIGNED> By: Faizan Jacob MD, FACC 11/29/19 1342 1136 1136 Faizan Jacob MD, [facility] /EPI
== END 2019-11-29 13:27 | disposition home or self-care (01) ==
LOC: ER 11:22
PROVIDERS: Emergency Medicine
DX: I10 Essential (primary) hypertension (principal); R20.2 Paresthesia of skin; K21.9 Gastro-esophageal reflux disease without esophagitis; I48.91 Unspecified atrial fibrillation; Z79.82 Long term (current) use of aspirin; Z79.899 Other long term (current) drug therapy; Z88.8 Allergy status to other drugs, medicaments and biological substances

== ENCOUNTER → 2019-12-07 | Outpatient (CLI) | payer OTHER ==
[~2019-12-07] MED LIST changes: +ELIQUIS5 MG PO
== END ==
LOC: SJCVCIMAG 15:52
PROVIDERS: ATTEND Internal Medicine Cardiovascular Disease
DX: I48.0 Paroxysmal atrial fibrillation (principal); R94.31 Abnormal electrocardiogram [ECG] [EKG]; I45.10 Unspecified right bundle-branch block; I49.5 Sick sinus syndrome; I10 Essential (primary) hypertension; Z79.899 Other long term (current) drug therapy

== ENCOUNTER → 2019-12-12 | Outpatient (CLI) | payer OTHER | LOC: LAB 11:54 | PROVIDERS: ATTEND Neuromusculoskeletal Medicine & OMM | DX: Z01.812 Encounter for preprocedural laboratory examination (principal); Z20.828 Contact with and (suspected) exposure to other viral communicable diseases ==

== ENCOUNTER → 2019-12-22 | Outpatient (CLI) | payer OTHER ==
[~2019-12-22] MED LIST changes: +FAMOTIDINE 20 M20 MG PO; +KLOR-CON 10 ER10 MEQ PO; +NORVASC 2.5 MG2.5 M1 PO; +PACERONE100 MG PO
== END ==
LOC: SJCVC 15:27
PROVIDERS: ATTEND Internal Medicine Cardiovascular Disease
DX: I48.0 Paroxysmal atrial fibrillation (principal); R94.31 Abnormal electrocardiogram [ECG] [EKG]; I45.10 Unspecified right bundle-branch block; I49.5 Sick sinus syndrome; I48.3 Typical atrial flutter; Z79.899 Other long term (current) drug therapy

== ENCOUNTER → 2019-12-23 | Outpatient (CLI) | payer OTHER | LOC: LAB 07:49 | PROVIDERS: ATTEND Internal Medicine Cardiovascular Disease | DX: Z01.812 Encounter for preprocedural laboratory examination (principal); Z20.828 Contact with and (suspected) exposure to other viral communicable diseases ==

== ENCOUNTER 2019-12-26 09:22 | Observation (INO) | payer OTHER ==
[~2019-12-26] VITALS: Ht 152.4 cm; Wt 71.7 kg
[~2019-12-26 09:22] MED LIST changes: -FAMOTIDINE 20 M20 MG PO; -KLOR-CON 10 ER10 MEQ PO; -NORVASC 2.5 MG2.5 M1 PO; -PACERONE100 MG PO
[2019-12-26 12:00] LABS: ABSOLUTE NEUTROPHILS 5.2 thou/uL (1.4-8.2); BASOPHILS 0.8 % (0.0-2.0); EOSINOPHILS 0.5 % (0.0-3.0); HEMATOCRIT 36.5 % (37.0-47.0); HEMOGLOBIN 11.9 gm/dL (12.0-15.0); LYMPHOCYTES 28.5 % (24.0-44.0); MCH 29.5 pg (26.0-34.0); MCHC 32.6 g/dL (28.0-37.0); MCV 90.3 fL (80.0-100.0); MONOCYTES 6.4 % (1.0-8.0); PLATELET COUNT 268 thou/uL (150-400); POLYS 63.8 % (36.0-66.0); RBC 4.04 mil/uL (4.20-5.00); WBC 8.1 thou/uL (4.0-11.0)
[2019-12-26 12:07] LABS: CALCIUM 8.9 mg/dL (8.5-10.1); CREATININE 0.9 mg/dL (0.6-1.0); POTASSIUM 3.5 mmol/L (3.5-5.1)
[2019-12-26 12:11] LABS: INR 1.1; PROTIME 10.8 Seconds (9.3-11.4)
[2019-12-26 12:16] VITALS: BP 138/83
[2019-12-26] MEDS ORDERED: PACERONE100 MG PO (12:28)
[2019-12-26] MEDS ORDERED: FAMOTIDINE 20 M20 MG PO (12:29)
[2019-12-26] MEDS ORDERED: NORVASC 2.5 MG2.5 M1 PO (12:31)
[2019-12-26] MEDS ORDERED: KLOR-CON 10 ER10 MEQ PO (12:32)
--- NOTE | 2019-12-26 14:25 | EKG ---
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 : 1930 Requested By: Julito العلي Order Number: [id number] MD: Faizan Jacob Measurements Intervals [place] Rate: 113 P: 210 [place]: 80 QRS: 12 QRSD: 148 T: 11 QT: 397 QTc: 545 Interpretive Statements Sinus or ectopic atrial tachycardia Right bundle branch block ST depr, consider ischemia, anterolateral lds Baseline wander in lead(s) V5 Compared to ECG 11/29/2019 11:36:42 Possible ischemia now present Sinus rhythm no longer present Electronically Signed On 12-26-2019 14:25:51 CDT by Faizan Jacob [email or web address] <ELECTRONICALLY SIGNED> By: Faizan Jacob MD, FACC 12/26/19 1425 00 00 Faizan Jacob MD, FAC /EPI
[2019-12-26 16:00] VITALS: BP 171/75
[2019-12-26 17:00] VITALS: BP 150/70
[2019-12-26 18:00] VITALS: BP 138/63
--- NOTE | 2019-12-26 18:24 | NUR ---
ASSUMED CARE POST CARDIAC ABLATION. PT ALERTX4 FROM HOME WITH SON. NGOZI PAIN , DENIES SOB, RIGHT GROIN SIGHT C/D/I. KEEPING LEG IMMOBIILIZED. POST CARDIAC VS PER PROTOCOL. 6HR BEDREST/ CONTINENT TO BEDPAN. EDUCATED TO AVOID LIFINT HEAD. HOLD GROIN SIGHT IF COUGHING OR EXERTING. ADMISSION COMPLETED. ORDERS ACKNOWLEDGE AND IMPLIMENTED. CALL LIGHT AND PERSONAL ITEMS IN REACH. LIKELY DC IN MORNING. FALL PRECATIONS IN PLACE.
[2019-12-26 20:15] VITALS: BP 139/58
[2019-12-27] VITALS: BP 140/61
[2019-12-27 03:49] VITALS: BP 146/72
[2019-12-27 08:00] VITALS: BP 137/69
[2019-12-27 11:23] VITALS: BP 137/69
--- NOTE | 2019-12-29 13:36 | P ---
[facility] [place] [address] PROCEDURE REPORT Name: TREYKAPAAU Room #: 215-[facility] Tasha Davenport#: [id number] Admission: 12/26/19 Attend Phys: Julito العلي MD Discharge: 12/27/19 Date of : 11/19/[birth year] Report #: [id number] THIS REPORT FOR: cc: Michael Little,Julito Elizabeth MD ~ CC: Julito Little DATE OF SERVICE: 12/26/2019 AV NODE ABLATION PREOPERATIVE DIAGNOSIS: Atrial fibrillation. POSTOPERATIVE DIAGNOSIS: Atrial fibrillation. PROCEDURES PERFORMED: 1. AV node ablation, CPT code 18592. 2. 3D mapping, CPT code 56589. 3. Preprocedural pacemaker reprogramming, CPT code 14657. 4. Post-procedure pacemaker reprogramming, CPT code 45912. 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 She is intolerant of AV ju blocking agents due to hypotension and fatigue. She was trialled on amiodarone, but started developing neurologic symptoms including fatigue, lightheadedness, and tremors. This dose was decreased and then she presented with atrial flutter with rapid ventricular response. As such, at this point, I recommended AV node ablation. DESCRIPTION OF PROCEDURE: The patient was brought to EP laboratory in fasting and sedated state and prepped and draped in a sterile fashion. Her pacemaker was programmed to VVI 40. I then obtained access to the right femoral vein x 1 and placed an SR0 sheath and an 8 mm ablation catheter up into the right atrium. I quickly located the His bundle and started performing ablation. The patient did develop a right bundle-branch block and then did develop significant slowing of conduction, but I could not get complete heart block. I performed extensive ablations in this region and then continued pulling back until I essentially had a predominantly atrial signals in the distal aspect of the ablation catheter and then I did a complete heart block. However, after a few minutes, conduction would return and I would ablate at this site again and heart block would recur and then conduction would come back as well. I therefore performed extensive ablation at this 1 spot and clocked the catheter. A 3D geometry of this region was created using CARTO via the ablation catheter. We monitored for a period of [facility] [address] [place] [address] PROCEDURE REPORT Name[facility] Room #: 215-P [facility] Tasha Davenport#: [id number] Admission: 12/26/19 Attend Phys: Julito العلي MD Discharge: 12/27/19 Date of : 11/19/[birth year] Report #: [id number] 20 minutes and there was no return of conduction. As such, her pacemaker was programmed to the final settings of VVIR 70-130 mode. An RV threshold was within normal limits and so were all other lead characteristics. As such, the procedure was concluded. Catheters and sheaths were pulled and hemostasis obtained and there were no procedure related complications. CONCLUSIONS: 1. Successful AV node ablation. 2. Successful pacemaker reprogramming. <ELECTRONICALLY SIGNED> By: Julito العلي MD 12/29/19 1336 1617 1757 Julito العلي MD /nt
== END 2019-12-27 12:42 | disposition home or self-care (01) ==
LOC: CATH 09:22 → 2N 15:47 → CATH 15:48 → 2N 12-27 12:42
PROVIDERS: ADMIT Internal Medicine Cardiovascular Disease; ATTEND Internal Medicine Cardiovascular Disease
DX: I48.91 Unspecified atrial fibrillation (principal); I48.92 Unspecified atrial flutter; I49.5 Sick sinus syndrome; K21.9 Gastro-esophageal reflux disease without esophagitis; Z86.73 Personal history of transient ischemic attack (TIA), and cerebral infarction without residual deficits; Z79.899 Other long term (current) drug therapy
CPT/HCPCS: 62110; 62900; 70005

== ENCOUNTER → 2020-02-28 | Outpatient (CLI) | payer OTHER ==
[~2020-02-28] MED LIST changes: +FAMOTIDINE 20 M20 MG PO; +KLOR-CON 10 ER10 MEQ PO; +NORVASC 2.5 MG2.5 M1 PO; +PACERONE100 MG PO
== END ==
LOC: SJCVCIMAG 16:15
PROVIDERS: ATTEND Internal Medicine Cardiovascular Disease
DX: R94.31 Abnormal electrocardiogram [ECG] [EKG] (principal); I08.3 Combined rheumatic disorders of mitral, aortic and tricuspid valves; R60.9 Edema, unspecified; I11.0 Hypertensive heart disease with heart failure; I50.9 Heart failure, unspecified; I49.5 Sick sinus syndrome; E78.5 Hyperlipidemia, unspecified; Z95.0 Presence of cardiac pacemaker; Z86.79 Personal history of other diseases of the circulatory system

== ENCOUNTER → 2020-03-07 | Outpatient (CLI) | payer OTHER | LOC: SJCVC 14:29 | PROVIDERS: ATTEND Internal Medicine Cardiovascular Disease | DX: R94.31 Abnormal electrocardiogram [ECG] [EKG] (principal); I44.7 Left bundle-branch block, unspecified; I11.0 Hypertensive heart disease with heart failure; I50.9 Heart failure, unspecified; I35.0 Nonrheumatic aortic (valve) stenosis; E78.5 Hyperlipidemia, unspecified; I48.0 Paroxysmal atrial fibrillation; I49.5 Sick sinus syndrome; K21.9 Gastro-esophageal reflux disease without esophagitis; E03.9 Hypothyroidism, unspecified; Z79.899 Other long term (current) drug therapy ==

== ENCOUNTER → 2020-06-25 | Outpatient (CLI) | payer OTHER | LOC: SJCVC 15:45 | PROVIDERS: ATTEND Internal Medicine Cardiovascular Disease | DX: R94.31 Abnormal electrocardiogram [ECG] [EKG] (principal); I35.0 Nonrheumatic aortic (valve) stenosis; I11.0 Hypertensive heart disease with heart failure; I50.9 Heart failure, unspecified; I49.5 Sick sinus syndrome; I48.0 Paroxysmal atrial fibrillation; E78.5 Hyperlipidemia, unspecified; D50.9 Iron deficiency anemia, unspecified; Z95.0 Presence of cardiac pacemaker; Z79.899 Other long term (current) drug therapy ==